=== PATIENT | male | born 1970 | race Caucasian/White ===

== ENCOUNTER 2021-07-27 16:01 | Emergency (ER) | payer OTHER ==
[~2021-07-27] VITALS: Ht 182.9 cm; Wt 88.6 kg
[2021-07-27] MEDS ORDERED: AMOXICILLIN 8751 TAB PO ×2 (18:15→19:31)
[2021-07-28 04:28] VITALS: BP 128/79; PULSE 81; TEMP 98.1
== END 2021-07-27 19:45 | disposition home or self-care (01) ==
LOC: COL.ER 16:01
DX: S61.250A Open bite of right index finger without damage to nail, initial encounter (principal); F17.210 Nicotine dependence, cigarettes, uncomplicated; W54.0XXA Bitten by dog, initial encounter
CPT/HCPCS: J0690